=== PATIENT | female | born 1965 | race African-American/Black ===

== ENCOUNTER 2024-04-11 05:23 | Emergency (ER) | payer MEDICAID ==
[~2024-04-11] VITALS: Ht 167.6 cm; Wt 77.1 kg
[2024-04-11 05:47] VITALS: BP 139/88; TEMP 98.4; O2SAT 97
== END 2024-04-11 05:58 | disposition left against medical advice (07) ==
LOC: ER 05:27
DX: R42 Dizziness and giddiness (principal); R07.89 Other chest pain; Z53.21 Procedure and treatment not carried out due to patient leaving prior to being seen by health care provider

== ENCOUNTER 2024-04-20 14:25 | Emergency (ER) | payer MEDICAID ==
[~2024-04-20] VITALS: Ht 167.6 cm; Wt 72.1 kg
[2024-04-20 14:41] VITALS: TEMP 98
[2024-04-20 16:53] VITALS: BP 135/85; O2SAT 98
== END 2024-04-20 16:54 | disposition home or self-care (01) ==
LOC: ER 14:28
DX: S13.4XXA Sprain of ligaments of cervical spine, initial encounter (principal); M25.512 Pain in left shoulder; M54.9 Dorsalgia, unspecified; R07.81 Pleurodynia; V47.5XXA Car driver injured in collision with fixed or stationary object in traffic accident, initial encounter; Y93.89 Activity, other specified; Y92.488 Other paved roadways as the place of occurrence of the external cause; Y99.8 Other external cause status
CPT/HCPCS: 73030-TC